=== PATIENT | female | born 1940 | race Caucasian/White ===

== ENCOUNTER → 2018-01-10 | Outpatient (CLI) | payer MEDICARE, OTHER ==
--- NOTE | 2018-01-10 13:25 | Diagnostic Imaging Report ---
EXAMINATION: CHEST 2 VIEWS INDICATION: Renal neoplasm COMPARISON: Chest radiograph 01/09/2017. FINDINGS: TUBES and LINES: None. LUNGS: Lungs are well inflated. Lungs are clear. There is no evidence of pneumonia or pulmonary edema. PLEURA: No pleural effusion or pneumothorax. HEART AND MEDIASTINUM: The cardiomediastinal silhouette is unremarkable. BONES AND SOFT TISSUES: No acute osseous lesion. Soft tissues are unremarkable. UPPER ABDOMEN: No free air under the diaphragm. IMPRESSION: No acute thoracic abnormality. Signed by: Dr. Michelle Pineda MD on 01/10/2018 1:21 PM
--- NOTE | 2018-01-10 13:50 | Diagnostic Imaging Report ---
EXAM: Renal Ultrasound INDICATION: Renal malignancy. COMPARISON: Renal ultrasound 01/09/2017. TECHNIQUE: Transverse and longitudinal images of the kidneys and bladder were obtained. FINDINGS: Right Kidney: Length: Measures 9.6 cm, renal cortex measures 1.5 cm. Appearance: Normal echogenicity. Collecting system: No hydronephrosis Stones: Echogenic focus measuring up to 5 mm. Cyst/Mass: None Left Kidney: Length: Measures 10.9 cm, renal cortex measures 1.8 cm. Appearance: Normal echogenicity. Collecting system: No hydronephrosis Stones: None Cyst/Mass: None Bladder: Unremarkable in appearance. Bilateral bladder jets are noted. IMPRESSION: No sonographic evidence of renal mass. A 5 mm right renal echogenic focus which may represent stone. No evidence of hydronephrosis. Signed by: Dr. Michelle Pineda MD on 01/10/2018 1:47 PM
== END ==
LOC: US 11:59
PROVIDERS: ATTEND Urology
DX: C64.9 Malignant neoplasm of unspecified kidney, except renal pelvis (principal)
CPT/HCPCS: 71046; 76770

== ENCOUNTER → 2018-03-09 | Outpatient (CLI) | payer MEDICARE, OTHER ==
--- NOTE | 2018-03-09 13:46 | Diagnostic Imaging Report ---
Exam: KUB. Clinical History: History of kidney cancer Comparison: Ultrasound 01/10/2018 Findings: Frontal view of the abdomen demonstrates a nonobstructive bowel gas pattern with moderate retained stool. There are no suspicious calcifications. Surgical clips in the right upper abdomen. No acute bone abnormality. Impression: No definite urinary tract calcification is seen Signed by: Dr. Pavan Haider M.D. on 03/09/2018 1:43 PM
== END ==
LOC: RAD 12:27
PROVIDERS: ATTEND Urology
DX: C64.9 Malignant neoplasm of unspecified kidney, except renal pelvis (principal)
CPT/HCPCS: 74018

== ENCOUNTER → 2019-01-15 | Outpatient (CLI) | payer MEDICARE, OTHER ==
--- NOTE | 2019-01-15 12:45 | Diagnostic Imaging Report ---
Renal ultrasound Clinical History: Renal neoplasm Comparison: January 10, 2018 Discussion: Sonographic evaluation of the kidneys is performed. The kidneys have normal size and cortical echogenicity. The right kidney measures 10.0 cm in length. The left kidney measures 11.4 cm in length. There is no focal renal mass, hydronephrosis, or shadowing renal calculus. No perinephric fluid collection is seen. Survey images of the bladder demonstrate no abnormality. Impression: Normal sonographic evaluation of the kidneys. The prior mentioned 5 mm echogenic focus in the right kidney was not demonstrated today. If there is clinical concern of this region, CT or MR is recommended. Signed by: Dr. Deacon Cotton MD on 01/15/2019 12:42 PM
== END ==
LOC: US 10:46
PROVIDERS: ATTEND Urology
DX: C64.9 Malignant neoplasm of unspecified kidney, except renal pelvis (principal)
CPT/HCPCS: 76770

== ENCOUNTER → 2020-02-24 | Outpatient (CLI) | payer MEDICARE, OTHER ==
--- NOTE | 2020-02-24 14:21 | Diagnostic Imaging Report ---
EXAM: Renal Ultrasound INDICATION: ^MALIGNANT NEOPLASM OF KIDNEY COMPARISON: None TECHNIQUE: Transverse and longitudinal images of the kidneys and bladder were obtained. FINDINGS: Right Kidney: Length: 11 cm Appearance: Normal echogenicity. Collecting system: No hydronephrosis Stones: There is a 0.2 cm nonshadowing echogenic focus within the midpole, nonspecific. Cyst/Mass: 1.0 cm anechoic cyst is noted. Left Kidney: Length: 11.8 cm Appearance: Normal echogenicity. Collecting system: No hydronephrosis Stones: None Cyst/Mass: None Bladder: Decompressed. IMPRESSION: Negative for hydronephrosis or suspicious mass. There is a 0.3 cm echogenic focus within the right kidney, possibly a nonobstructive stone. Finding is nonspecific. Consider cross-sectional imaging if clinically indicated. Signed by: Kelvin Zhao MD on 02/24/2020 2:18 PM
== END ==
LOC: US 12:28
PROVIDERS: ATTEND Urology
DX: C64.9 Malignant neoplasm of unspecified kidney, except renal pelvis (principal)
CPT/HCPCS: 76770

== ENCOUNTER → 2021-01-22 | Day surgery (SDC) | payer MEDICARE, OTHER ==
[2021-01-20 11:55] LABS: BASOPHILS % 0.5 % (0.0-1.0); EOSINOPHILS # (AUTO) 0.1 (0.0-0.4); EOSINOPHILS % 0.9 % (0.0-6.0); HEMATOCRIT 34.6 % (34.2-44.1); HEMOGLOBIN 11.5 g/dL (12.0-16.0); LYMPHOCYTES # (AUTO) 1.7 (1.0-3.2); MEAN CORPUSCULAR HEMOGLOBIN 33.1 pg (28-32); MEAN CORPUSCULAR HGB CONC 33.2 g/dL (31-35); MEAN CORPUSCULAR VOLUME 99.7 fL (81-99); MONOCYTES # (AUTO) 0.7 (0.2-0.8); MONOCYTES % 10.8 % (4.4-11.3); NEUTROPHILS # (AUTO) 3.9 (2.1-6.9); NEUTROPHILS % 61.6 % (38.7-80.0); PLATELET COUNT 252 x10e3/uL (140-360); RED BLOOD COUNT 3.47 x10e6/uL (3.6-5.1); RED CELL DISTRIBUTION WIDTH 11.9 % (11.7-14.4)
[~2021-01-22] MED LIST: ASPIRIN81 MG PO; CARVEDILOL25 MG; CRESTOR10 MG PO; DIOVAN160 MG PO; DONEPEZIL HCL5 MG PO; FENTANYL CITRATE/PF 100MCG/2 ML INJ ONE; METFORMIN HCL500 MG PO; MIDAZOLAM HCL 2 MG/2 ML VIAL ONE; NAMENDA10 MG PO; QUININE SULFAT324 MG PO; ZOLOFT50 MG PO
[2021-01-22 13:00] VITALS: BP 125/66
== END | disposition home or self-care (01) ==
LOC: OR 07:57
PROVIDERS: ATTEND Internal Medicine Gastroenterology
DX: D64.89 Other specified anemias (principal); D12.4 Benign neoplasm of descending colon; K29.50 Unspecified chronic gastritis without bleeding; K29.60 Other gastritis without bleeding; K20.90 Esophagitis, unspecified without bleeding; K21.9 Gastro-esophageal reflux disease without esophagitis; K58.9 Irritable bowel syndrome, unspecified; K44.9 Diaphragmatic hernia without obstruction or gangrene; K57.30 Diverticulosis of large intestine without perforation or abscess without bleeding; K64.8 Other hemorrhoids; I10 Essential (primary) hypertension; E78.5 Hyperlipidemia, unspecified; E11.9 Type 2 diabetes mellitus without complications; F01.50 Vascular dementia, unspecified severity, without behavioral disturbance, psychotic disturbance, mood disturbance, and anxiety; Z01.810 Encounter for preprocedural cardiovascular examination; Z01.812 Encounter for preprocedural laboratory examination; Z20.822 Contact with and (suspected) exposure to COVID-19; Z79.82 Long term (current) use of aspirin; Z79.84 Long term (current) use of oral hypoglycemic drugs; Z86.73 Personal history of transient ischemic attack (TIA), and cerebral infarction without residual deficits; Z85.528 Personal history of other malignant neoplasm of kidney
CPT/HCPCS: 36415 ×2; 43239; 45380; 45385; 82948; 85025; 88305; 88312; 93005; J2250; J3010; U0002; 45378